=== PATIENT | male | born 1995 | race Hispanic/Latino ===

== ENCOUNTER 2018-04-20 03:37 | Emergency (ER) | payer BC ==
[2018-04-20] MEDS ORDERED: IBUPROFEN 200 MG TAB PO ONE (04:10)
[2018-04-20] MEDS ORDERED: IBUPROFEN 400 MG TAB ONE (04:10)
[2018-04-20] MEDS ORDERED: ACETAMINOPHEN 500 MG TAB ONE (04:10)
--- NOTE | 2018-04-20 05:17 | ER ---
Nurse's Notes [facility] Name: Clovis Huerta Age: 22 yrs Sex: Male : 1995 Arrival Date: 04/20/2018 Time: 03:40 Bed 19 Private MD: Diagnosis: Left Ankle Sprain Presentation: 04/20 03:56 Presenting complaint: Patient states: "I rolled my left ankle about 4-6 weeks ago and bs1 the swelling hasn't gone down, now I am having shooting pains going up my leg.". Transition of care: patient was not received from another setting of care. Onset of symptoms is unknown. Risk Assessment: Do you want to hurt yourself or someone else? Patient reports no desire to harm self or others. Initial Sepsis Screen: Does the patient meet any 2 criteria? No. Patient's initial sepsis screen is negative. Does the patient have a suspected source of infection? No. Patient's initial sepsis screen is negative. Care prior to arrival: None. 03:56 Method Of Arrival: Ambulatory bs1 03:56 Acuity: JOSE 4 bs1 Historical: - Allergies: 03:58 NKDA; bs1 - Home Meds: 03:58 None [Active]; bs1 - PMHx: 03:58 right/left ankle fx; right knee fx; bs1 - PSHx: 03:58 right hand sx- w/ screws; bs1 - Immunization history:: Adult Immunizations up to date. - Social history:: Smoking status: Patient/guardian denies using tobacco. - Ebola Screening: : Patient negative for fever greater than or equal to 101.5 degrees Fahrenheit, and additional compatible Ebola Virus Disease symptoms Patient denies exposure to infectious person. - Family history:: not pertinent. - Hospitalizations: : No recent hospitalization is reported. Screenin:58 Abuse screen: Denies threats or abuse. Denies injuries from another. Nutritional bs1 screening: No deficits noted. Tuberculosis screening: No symptoms or risk factors identified. Fall Risk None identified. Assessment: 04:00 General: Appears in no apparent distress. uncomfortable, Behavior is calm, cooperative, bs1 appropriate for age. Pain: Complains of pain in left ankle Pain radiates to up left leg to chin. Neuro: Level of Consciousness is awake, alert, obeys commands, Oriented to person, place, time, situation, Appropriate for age. Cardiovascular: Denies chest pain, shortness of breath, Heart tones S1 S2 present Capillary refill < 3 seconds Patient's skin is warm and dry. Respiratory: Airway is patent Trachea midline Respiratory effort is even, unlabored, Respiratory pattern is regular, symmetrical, Breath sounds are clear bilaterally. GI: No signs and/or symptoms were reported involving the gastrointestinal system. : No signs and/or symptoms were reported regarding the genitourinary system. EENT: No signs and/or symptoms were reported regarding the EENT system. Derm: Skin is intact, Skin is pink, warm \\T\\ dry. normal. Musculoskeletal: Circulation, motion, and sensation intact. Capillary refill < 3 seconds, Range of motion: limited in left ankle Swelling present in left ankle Reports pain in left ankle up to chin. 05:15 Reassessment: Patient appears in no apparent distress at this time. Patient and/or bs1 family updated on plan of care and expected duration. Pain level reassessed. Patient is alert, oriented x 3, equal unlabored respirations, skin warm/dry/pink. 05:20 Reassessment: Ankle Aircast applied to left ankle, by BRIGITTE Preston. bs1 Vital Signs: 03:59 BP 112 / 88; Pulse 84; Resp 15 S; Temp 97; Pulse Ox 100% ; Weight 142.88 kg; Height 5 bs1 ft. 5 in. (165.10 cm); Pain 7/10; 04:59 BP 108 / 59; Pulse 82; Resp 16; Temp 97.9(O); Pulse Ox 99% on R/A; Pain 0/10; bs1 03:59 Body Mass Index 52.42 (142.88 kg, 165.10 cm) bs1 ED Course: 03:40 Patient arrived in ED. es 03:44 Rosio Roberts, ELI is Primary Nurse. bs1 03:48 Veto Mcgowan MD is Attending Physician. wa 03:57 Triage completed. bs1 03:58 Patient has correct armband on for positive identification. Bed in low position. Call bs1 light in reach. Side rails up X 1. Pulse ox on. NIBP on. 04:00 Arm band placed on left wrist. bs1 04:18 X-ray completed. Portable x-ray completed in exam room. Patient tolerated procedure jw2 well. 04:19 Ankle Left 3 View XRAY In Process Unspecified. EDMS 05:15 Joel Gomez MD is Referral Physician. wa 05:31 No provider procedures requiring assistance completed. Patient did not have IV access bs1 during this emergency room visit. Administered Medications: 04:10 Drug: Motrin 600 mg Route: PO; bs1 05:17 Follow up: Response: No adverse reaction bs1 04:10 Drug: Tylenol 1000 mg Route: PO; bs1 05:17 Follow up: Response: No adverse reaction bs1 Outcome: 05:16 Discharge ordered by . wa 05:31 Discharged to home ambulatory, with significant other. bs1 05:31 Condition: stable 05:31 Discharge instructions given to patient, Instructed on discharge instructions, follow up and referral plans. medication usage, Demonstrated understanding of instructions, follow-up care, medications, Prescriptions given X 1. 05:32 Patient left the ED. bs1 Signatures: Dispatcher [employer] EDPinky Garcia Jenni jw2 Veto Mcgowan MD MD wa Salazar, Brittany RN RN bs1
--- NOTE | 2018-04-20 05:17 | EDPHYS ---
Physician Documentation [facility] Name: Clovis Huerta Age: 22 yrs Sex: Male : 1995 Arrival Date: 04/20/2018 Time: 03:40 Bed 19 Private MD: ED Physician Veto Mcgowan HPI: 04/20 05:06 This 22 yrs old Male presents to ER via Ambulatory with complaints of Ankle wa Injury. 05:06 The patient presents with an injury, swelling, tenderness. The complaints affect the wa left ankle. Onset: The symptoms/episode began/occurred 6 month(s) ago, c/o rolled L ankle 6 weeks ago. did not get it checked. now 4 days of worsening pain and swelling. . Context: The problem was sustained at work, resulted from the patient tripping, The mechanism of injury involved eversion of the affected ankle. The patient can partially bear weight on the affected extremity. the patient is able to ambulate, with mild difficulty. Associated signs and symptoms: Pertinent positives: swelling, Pertinent negatives: calf tenderness, numbness, warmth. Modifying factors: The symptoms are alleviated by nothing, the symptoms are aggravated by weight bearing. Severity of symptoms: At their worst the symptoms were moderate, in the emergency department the symptoms are unchanged. The patient has not experienced similar symptoms in the past. The patient has not recently seen a physician. Historical: - Allergies: 03:58 NKDA; bs1 - Home Meds: 03:58 None [Active]; bs1 - PMHx: 03:58 right/left ankle fx; right knee fx; bs1 - PSHx: 03:58 right hand sx- w/ screws; bs1 - Immunization history:: Adult Immunizations up to date. - Social history:: Smoking status: Patient/guardian denies using tobacco. - Ebola Screening: : Patient negative for fever greater than or equal to 101.5 degrees Fahrenheit, and additional compatible Ebola Virus Disease symptoms Patient denies exposure to infectious person. - Family history:: not pertinent. - Hospitalizations: : No recent hospitalization is reported. ROS: 05:11 Constitutional: Negative for fever, chills, and weight loss, Eyes: Negative for injury, wa pain, redness, and discharge, ENT: Negative for injury, pain, and discharge, Neck: Negative for injury, pain, and swelling, Cardiovascular: Negative for chest pain, palpitations, and edema, Respiratory: Negative for shortness of breath, cough, wheezing, and pleuritic chest pain, Abdomen/GI: Negative for abdominal pain, nausea, vomiting, diarrhea, and constipation, Back: Negative for injury and pain, : Negative for injury, bleeding, discharge, and swelling, Skin: Negative for injury, rash, and discoloration, Neuro: Negative for headache, weakness, numbness, tingling, and seizure, Psych: Negative for depression, anxiety, suicide ideation, homicidal ideation, and hallucinations. 05:11 MS/extremity: Positive for pain, swelling, tenderness. 05:11 All other systems are negative. Exam: 05:12 Constitutional: This is a well developed, well nourished patient who is awake, alert, wa and in no acute distress. Head/Face: Normocephalic, atraumatic. Eyes: Pupils equal round and reactive to light, extra-ocular motions intact. Lids and lashes normal. Conjunctiva and sclera are non-icteric and not injected. Cornea within normal limits. Periorbital areas with no swelling, redness, or edema. ENT: Nares patent. No nasal discharge, no septal abnormalities noted. Tympanic membranes are normal and external auditory canals are clear. Oropharynx with no redness, swelling, or masses, exudates, or evidence of obstruction, uvula midline. Mucous membranes moist. Neck: Trachea midline, no thyromegaly or masses palpated, and no cervical lymphadenopathy. Supple, full range of motion without nuchal rigidity, or vertebral point tenderness. No Meningismus. Chest/axilla: Normal chest wall appearance and motion. Nontender with no deformity. No lesions are appreciated. Cardiovascular: Regular rate and rhythm with a normal S1 and S2. No gallops, murmurs, or rubs. Normal PMI, no JVD. No pulse deficits. Respiratory: Lungs have equal breath sounds bilaterally, clear to auscultation and percussion. No rales, rhonchi or wheezes noted. No increased work of breathing, no retractions or nasal flaring. Abdomen/GI: Soft, non-tender, with normal bowel sounds. No distension or tympany. No guarding or rebound. No evidence of tenderness throughout. Back: No spinal tenderness. No costovertebral tenderness. Full range of motion. Skin: Warm, dry with normal turgor. Normal color with no rashes, no lesions, and no evidence of cellulitis. Neuro: Awake and alert, GCS 15, oriented to person, place, time, and situation. Cranial nerves II-XII grossly intact. Motor strength 5/5 in all extremities. Sensory grossly intact. Cerebellar exam normal. Normal gait. Psych: Awake, alert, with orientation to person, place and time. Behavior, mood, and affect are within normal limits. 05:12 Musculoskeletal/extremity: Extremities: grossly normal except: noted in the left lateral ankle: contusion, pain, swelling, tenderness, ROM: no acute changes. Vital Signs: 03:59 BP 112 / 88; Pulse 84; Resp 15 S; Temp 97; Pulse Ox 100% ; Weight 142.88 kg; Height 5 bs1 ft. 5 in. (165.10 cm); Pain 7/10; 04:59 BP 108 / 59; Pulse 82; Resp 16; Temp 97.9(O); Pulse Ox 99% on R/A; Pain 0/10; bs1 03:59 Body Mass Index 52.42 (142.88 kg, 165.10 cm) bs1 Procedures: 05:14 Splinting: Splint applied to left ankle using Air Cast, applied by nurse. Examined by sanaz wy, post splint application: neurovascular intact, 2+ distal pulses palpable, brisk capillary refill noted, Patient tolerated well. MDM: 03:49 Patient medically screened. il 05:13 Differential diagnosis: fracture, sprain. Data reviewed: vital signs, nurses notes. il Test interpretation: by ED physician or midlevel provider: L ankle x-ray: soft tissue swelling in the area of lateral malleolus. no acute fx. Response to treatment: the patient's symptoms have markedly improved after treatment. 04/20 03:55 Order name: Ankle Left 3 View XRAY il 04/20 05:17 Order name: Aircast Ankle Splint; Complete Time: 05:22 bs1 Administered Medications: 04:10 Drug: Motrin 600 mg Route: PO; bs1 05:17 Follow up: Response: No adverse reaction bs1 04:10 Drug: Tylenol 1000 mg Route: PO; bs1 05:17 Follow up: Response: No adverse reaction bs1 Disposition: 04/20/18 05:16 Discharged to Home. Impression: Left Ankle Sprain. - Condition is Stable. - Discharge Instructions: Ankle Sprain. - Prescriptions for Prednisone 20 mg Oral Tablet - take 2 tablet by ORAL route once daily for 5 days; 10 tablet. - Medication Reconciliation Form, Thank You Letter, Antibiotic Education, Prescription Opioid Use, Work release form form. - Follow up: Joel Gomez MD; When: 2 - 3 days; Reason: Recheck today's complaints. - Problem is new. - Symptoms have improved. - Notes: wear splint. use crutches to help put less pressure on the injured ankle. follow up with the orthopedic surgeon for reevaluation. Signatures: Dispatcher [employer] EDMS Veto Mcgowan MD MD wa Salazar, Brittany RN RN bs1 Corrections: (The following items were deleted from the chart) 05:32 05:16 04/20/2018 05:16 Discharged to Home. Impression: Left Ankle Sprain. Condition is bs1 Stable. Forms are Medication Reconciliation Form, Thank You Letter, Antibiotic Education, Prescription Opioid Use. Follow up: Joel Gomez; When: 2 - 3 days; Reason: Recheck today's complaints. Problem is new. Symptoms have improved. wa
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
== END 2018-04-20 05:32 | disposition home or self-care (01) ==
LOC: ER 03:37
DX: S93.402A Sprain of unspecified ligament of left ankle, initial encounter (principal); W18.49XA Other slipping, tripping and stumbling without falling, initial encounter; Y93.89 Activity, other specified; Y92.89 Other specified places as the place of occurrence of the external cause; Y99.0 Civilian activity done for income or pay
CPT/HCPCS: 99284

== ENCOUNTER 2018-08-01 17:39 | Emergency (ER) | payer BC ==
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
[2018-08-01 21:12] LABS: Urine Blood NEGATIVE (NEG); Urine Glucose NEGATIVE (NEG); Urine Protein 2+ (NEG); Urine Specific Gravity <1.005 (1.005-1.030); Urine pH 5.5 (5.0-7.0)
[2018-08-01] MEDS ORDERED: ONDANSETRON 4 MG/2 ML VIAL ONE (21:22)
== END 2018-08-01 21:28 | disposition home or self-care (01) ==
LOC: ER 17:39
DX: S16.1XXA Strain of muscle, fascia and tendon at neck level, initial encounter (principal); V49.49XA Driver injured in collision with other motor vehicles in traffic accident, initial encounter
CPT/HCPCS: 72125; 72128; 81003; 96374; 99285; J2405

== ENCOUNTER 2018-10-31 16:54 | Emergency (ER) | payer BC ==
[2018-10-31 18:41] LABS: Absolute Lymphocytes (CBC) 2.4 K/uL (0.7-4.9); Absolute Monocytes 0.6 K/uL (0.1-1.3); Absolute Neutrophil 6.9 K/uL (1.8-8.0); Basophils % 0.6 % (0-1.3); Eosinophils % 1.5 % (0-4.4); Hematocrit 44.7 % (39.6-49.0); Lymphocytes % 23.6 % (15.3-44.8); MPV 7.9 fL (7.6-11.3)
[2018-10-31 18:55] LABS: ALT/SGPT 37 U/L (12-78); AST/SGOT 21 U/L (15-37); Albumin 3.8 g/dL (3.4-5.0); Alkaline Phosphatase 89 U/L (45-117); BUN Blood Urea Nitrogen 14 mg/dL (7-18); Bicarbonate 27 mmol/L (21-32); Bilirubin Direct 0.3 mg/dL (0-0.2); Bilirubin Total 0.9 mg/dL (0.2-1.0); Glucose Level 89 mg/dL (74-106); Lipase 65 U/L (73-393); Potassium 3.9 mmol/L (3.5-5.1); Protein, Total 8.7 g/dL (6.4-8.2); Sodium Level 140 mmol/L (136-145)
[2018-10-31] MEDS ORDERED: NA CHLORIDE 0.9% 1,000 ML ONE (19:00)
[2018-10-31 20:23] LABS: Urine RBC NONE SEEN /HPF (NONE SEEN)
[2018-10-31 20:24] LABS: Urine Bacteria NONE SEEN /HPF (NONE SEEN); Urine Culture Reflex Order NOT NEEDED
[2018-10-31 20:24] LABS: Urine Blood NEGATIVE (NEG); Urine Glucose NEGATIVE (NEG); Urine Protein NEGATIVE (NEG)
--- NOTE | 2018-10-31 20:59 | RAD REPORT ---
EXAM DESCRIPTION: CT - Abdomen Pelvis W Contrast - 10/31/2018 8:38 pm CLINICAL HISTORY: Right lower quadrant pain COMPARISON: January 2016 TECHNIQUE: Biphasic, helical CT imaging of the abdomen and pelvis was performed following 100 ml non -ionic IV contrast. Oral contrast was given. All CT scans are performed using dose optimization technique as appropriate and may include automated exposure control or mA/KV adjustment according to patient size. FINDINGS: No suspicious findings in the lung bases. No focal liver lesions seen. Diffuse fatty infiltration is present in the liver. Spleen and pancreas show no acute findings. Gallbladder and biliary tree are also without suspicious finding. Symmetric renal function is seen with no hydronephrosis or suspicious renal mass. No pyelonephritis o r acute parenchymal process. Urinary bladder is contracted limiting assessment. No bladder abnormalit y suspected. No adrenal abnormalities. No dilated bowel loops or bowel wall thickening. No direct or indirect evidence for appendicitis. Sma ll mesenteric lymph nodes are present. No free air, free fluid or inflammatory stranding. No hernia, mass or bulky lymphadenopathy within the peritoneal or retroperitoneal spaces. Patient has an enlarg ed 3.5 centimeter right inguinal lymph node. . No suspicious bony findings. IMPRESSION: Small mesenteric lymph nodes are present. No appendicitis findings seen. No dilated bowel or focal bowel wall thickening. No emergent finding seen. Approximately 3.5 centimeter right inguinal lymph node likely reactive but warranting ongoing monitor ing or further workup. No other lymphadenopathy. Diffuse fatty infiltration of the liver.
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
--- NOTE | 2018-10-31 21:18 | ER ---
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 Transition of care: patient was not received from another setting of care. Onset of symptoms was October 31, 2018. Risk Assessment: Do you want to hurt yourself or someone else? Patient reports no desire to harm self or others. Initial Sepsis Screen: Does the patient meet any 2 criteria? No. Patient's initial sepsis screen is negative. Does the patient have a suspected source of infection? No. Patient's initial sepsis screen is negative. Care prior to arrival: None. 17:32 Method Of Arrival: Ambulatory 17:32 Acuity: JOSE 3 sg Historical: - Allergies: 17:35 NKDA; sg - Home Meds: 17:35 None [Active]; sg - PMHx: 17:35 right knee fx; right/left ankle fx; sg - PSHx: 17:35 right hand sx- w/ screws; sg - Immunization history:: Adult Immunizations up to date. - Social history:: Smoking status: Patient/guardian denies using tobacco. - Ebola Screening: : Patient negative for fever greater than or equal to 101.5 degrees Fahrenheit, and additional compatible Ebola Virus Disease symptoms Patient denies exposure to infectious person Patient denies travel to an Ebola-affected area in the 21 days before illness onset. Screenin:20 Abuse screen: Denies threats or abuse. Denies injuries from another. Nutritional aj screening: No deficits noted. Tuberculosis screening: No symptoms or risk factors identified. Fall Risk None identified. Assessment: 18:20 General: Appears in no apparent distress. comfortable, Behavior is calm, cooperative, aj appropriate for age. Pain: Complains of pain in right femoral area. Neuro: Level of Consciousness is awake, alert, obeys commands, Oriented to person, place, time, situation, Appropriate for age. Respiratory: Airway is patent Respiratory effort is even, unlabored, Respiratory pattern is regular, symmetrical. GI: Abdomen is flat, Bowel sounds present X 4 quads. Abd is soft and non tender Reports lower abdominal pain. Derm: Skin is intact, is healthy with good turgor, Skin is pink, warm \T\ dry. normal. 19:00 General: Appears in no apparent distress. comfortable, Behavior is calm, cooperative, rr5 appropriate for age. Pain: Complains of pain in right femoral area Pain does not radiate. Pain currently is 6 out of 10 on a pain scale. Quality of pain is described as aching, Pain began gradually, Is intermittent. Neuro: Level of Consciousness is awake, alert, obeys commands, Oriented to person, place, time, situation, Appropriate for age. Cardiovascular: Capillary refill < 3 seconds Patient's skin is warm and dry. Respiratory: Airway is patent Respiratory effort is even, unlabored, Respiratory pattern is regular, symmetrical. GI: Abdomen is obese, Reports lower abdominal pain. : No signs and/or symptoms were reported regarding the genitourinary system. EENT: No signs and/or symptoms were reported regarding the EENT system. Derm: Skin is intact, Skin is pink, warm \T\ dry. normal. Musculoskeletal: Capillary refill < 3 seconds, Range of motion: intact in all extremities. 20:00 Reassessment: Patient appears in no apparent distress at this time. Patient and/or rr5 family updated on plan of care and expected duration. Pain level reassessed. awaiting for CT scan procedure. 20:45 Reassessment: Patient appears in no apparent distress at this time. Patient and/or rr5 family updated on plan of care and expected duration. Pain level reassessed. back from CT scan. no complaints made. 21:15 Reassessment: Patient appears in no apparent distress at this time. Patient and/or rr5 family updated on plan of care and expected duration. Pain level reassessed. discharge instruction given and explained without complaints made. Vital Signs: 17:30 BP 115 / 83; Pulse 77; Resp 17; Temp 98.3; Pulse Ox 100% on R/A; Weight 135.17 kg (R); sg Height 5 ft. 5 in. (165.10 cm); Pain 7/10; 19:00 BP 105 / 77; Pulse 88; Resp 17; Temp 98.7; Pulse Ox 99% ; Pain 6/10; rr5 20:00 BP 108 / 75; Pulse 80; Resp 18; Pulse Ox 99% ; rr5 21:00 BP 102 / 62; Pulse 80; Resp 17; Pulse Ox 98% ; rr5 17:30 Body Mass Index 49.59 (135.17 kg, 165.10 cm) ED Course: 16:57 Patient arrived in ED. rg4 17:32 Arm band placed on. sg 17:34 Triage completed. sg 17:37 Oni Christensen PA is PHCP. cp 17:37 Oni Schofield MD is Attending Physician. cp 17:49 Angie Campbell, ELI is Primary Nurse. aj 18:20 Patient has correct armband on for positive identification. aj 18:20 Inserted saline lock: 18 gauge in right antecubital area, using aseptic technique. aj Blood collected. 18:27 Oral contrast reported to be complete. sj 20:[address] via wheelchair. sj 20:37 CT completed. Patient tolerated procedure well. Patient moved back from CT. sj 20:39 CT Abd/Pelvis - W/Contrast: give oral contrast In Process Unspecified. EDMS 21:14 Kike Sotelo MD is Referral Physician. cp 21:15 No provider procedures requiring assistance completed. IV discontinued, intact, rr5 bleeding controlled, No redness/swelling at site. Pressure dressing applied. Administered Medications: 18:52 Drug: NS 0.9% 1000 ml Route: IV; Rate: 1 bolus; Site: right antecubital; aj 20:00 Follow up: Response: No adverse reaction; IV Status: Completed infusion; IV Intake: rr5 1000ml Intake: 20:00 IV: 1000ml; Total: 1000ml. rr5 Outcome: 21:17 Discharge ordered by MD. cp 21:20 Discharged to home ambulatory. rr5 21:20 Condition: stable 21:20 Discharge instructions given to patient, Instructed on discharge instructions, follow up and referral plans. medication usage, Demonstrated understanding of instructions, follow-up care, medications, Prescriptions given X 2. 21:33 Patient left the ED. rr5 Signatures: Dispatcher [employer] EDMS Jerry Owens RN RN sg Myers, Amanda, RN RN aj Jones, Susan Oni Christensen PA PA cp Garcia, Rubi rg4 Calixto Dewitt, RN RN rr5
== END 2018-10-31 21:33 | disposition home or self-care (01) ==
LOC: ER 16:54
DX: I88.0 Nonspecific mesenteric lymphadenitis (principal)
CPT/HCPCS: 36415; 74177; 80048; 80076; 81003; 81015; 83690; 85025; 96360; 99284; J7030; Q9967

== ENCOUNTER 2019-09-22 10:00 | Emergency (ER) | payer BC ==
--- NOTE | 2019-09-22 11:09 | ER ---
Nurse's Notes [facility] Name: Clovis Huerta Age: 24 yrs Sex: Male : 1995 Arrival Date: 09/22/2019 Time: 10:04 Bed 10 Private MD: Diagnosis: Strain of muscle, fascia and tendon of lower back Presentation: 09/22 10:34 Presenting complaint: Patient states: lifted something heavy yesterday, strained his iw back, now hurting mid to lower back, more on right, was wanting time off work but his employer said he needed a work note for that. Transition of care: patient was not received from another setting of care. Onset of symptoms was September 21, 2019. Risk Assessment: Do you want to hurt yourself or someone else? Patient reports no desire to harm self or others. Initial Sepsis Screen: Does the patient meet any 2 criteria? No. Patient's initial sepsis screen is negative. Does the patient have a suspected source of infection? No. Patient's initial sepsis screen is negative. Care prior to arrival: None. 10:34 Method Of Arrival: Ambulatory 10:34 Acuity: JOSE 4 iw Historical: - Allergies: 10:36 NKDA; iw - Home Meds: 10:36 None [Active]; iw - PMHx: 10:36 right knee fx; right/left ankle fx; iw - PSHx: 10:36 right hand; iw - Immunization history:: Last tetanus immunization: unknown. - Social history:: Smoking status: Patient uses tobacco products, denies chronic smoking, but will smoke occasionally. - Ebola Screening: : Patient negative for fever greater than or equal to 101.5 degrees Fahrenheit, and additional compatible Ebola Virus Disease symptoms Patient denies exposure to infectious person Patient denies travel to an Ebola-affected area in the 21 days before illness onset No symptoms or risks identified at this time. - Family history:: not pertinent. - Hospitalizations: : No recent hospitalization is reported. Vital Signs: 10:36 BP 123 / 57; Pulse 66; Resp 16; Temp 98.5; Pulse Ox 96% on R/A; Weight 136.08 kg; iw Height 5 ft. 7 in. (170.18 cm); Pain 6/10; 10:36 Body Mass Index 46.99 (136.08 kg, 170.18 cm) iw ED Course: 10:04 Patient arrived in ED. mr 10:35 Triage completed. iw 10:36 Arm band placed on. iw 10:37 Emerson Jorge MD is Attending Physician. rn 11:19 Suzanne Covington RN is Primary Nurse. iw Administered Medications: No medications were administered Outcome: :08 Discharge ordered by . rn 11:22 Patient left the ED. iw Signatures: Dayo Shania mr Suzanne Covington, ELI RN Emerson Jorge MD MD rn
--- NOTE | 2019-09-22 11:09 | EDPHYS ---
Physician Documentation [facility] Name: Clovis Huerta Age: 24 yrs Sex: Male : 1995 Arrival Date: 09/22/2019 Time: 10:04 Bed 10 Private MD: ED Physician Emerson Jorge HPI: 09/22 11:01 This 24 yrs old Male presents to ER via Ambulatory with complaints of Back rn Pain. 11:01 The patient presents with pain that is acute. The symptoms are located in the low back. rn Onset: The symptoms/episode began/occurred yesterday. The pain does not radiate. Associated signs and symptoms: The patient has no apparent associated signs or symptoms, Pertinent negatives: abdominal pain, fever, hematuria, incontinence, nausea, numbness, tingling, urinary retention, vomiting, weakness. Modifying factors: The patient symptoms are alleviated by OTC meds, the patient symptoms are aggravated by lifting. Severity of symptoms: At their worst the symptoms were mild, in the emergency department the symptoms have improved. The patient has not experienced similar symptoms in the past. The patient has not recently seen a physician. Reports low back pain after lifting heavy object at work, no paralysis or bowel/bladder issues. Reports pain only with heavy lifting. No radiation of pain. Improved with ibuprofen. . 11:05 States didn't think needed to come here, but work made him come to get checked out.. rn Historical: - Allergies: 10:36 NKDA; iw - Home Meds: 10:36 None [Active]; iw - PMHx: 10:36 right knee fx; right/left ankle fx; iw - PSHx: 10:36 right hand; iw - Immunization history:: Last tetanus immunization: unknown. - Social history:: Smoking status: Patient uses tobacco products, denies chronic smoking, but will smoke occasionally. - Ebola Screening: : Patient negative for fever greater than or equal to 101.5 degrees Fahrenheit, and additional compatible Ebola Virus Disease symptoms Patient denies exposure to infectious person Patient denies travel to an Ebola-affected area in the 21 days before illness onset No symptoms or risks identified at this time. - Family history:: not pertinent. - Hospitalizations: : No recent hospitalization is reported. ROS: 11:05 Constitutional: Negative for fever, chills, and weight loss, Eyes: Negative for injury, rn pain, redness, and discharge, Neck: Negative for injury, pain, and swelling, Cardiovascular: Negative for chest pain, palpitations, and edema, Respiratory: Negative for shortness of breath, cough, wheezing, and pleuritic chest pain, Abdomen/GI: Negative for abdominal pain, nausea, vomiting, diarrhea, and constipation, Back: + low back pain and injury MS/Extremity: Negative for injury and deformity, Skin: Negative for injury, rash, and discoloration, Neuro: Negative for headache, weakness, numbness, tingling, and seizure. Exam: 11:05 Constitutional: This is a well developed, well nourished patient who is awake, alert, rn and in no acute distress. Head/Face: Normocephalic, atraumatic. Back: No spinal tenderness. No costovertebral tenderness. Full range of motion. MS/ Extremity: Pulses equal, no cyanosis. Neurovascular intact. Full, normal range of motion. Equal circumference. Neuro: Awake and alert, GCS 15, oriented to person, place, time, and situation. Cranial nerves II-XII grossly intact. Motor strength 5/5 in all extremities. Sensory grossly intact. Cerebellar exam normal. Normal gait. Vital Signs: 10:36 BP 123 / 57; Pulse 66; Resp 16; Temp 98.5; Pulse Ox 96% on R/A; Weight 136.08 kg; iw Height 5 ft. 7 in. (170.18 cm); Pain 6/10; 10:36 Body Mass Index 46.99 (136.08 kg, 170.18 cm) iw MDM: 10:37 Patient medically screened. rn 11:05 Differential diagnosis: disc herniation or bulge, radiculopathy. Data reviewed: vital rn signs, nurses notes, and as a result, I will discharge patient. Counseling: I had a detailed discussion with the patient and/or guardian regarding: the historical points, exam findings, and any diagnostic results supporting the discharge/admit diagnosis, the need for outpatient follow up, to return to the emergency department if symptoms worsen or persist or if there are any questions or concerns that arise at home. Special discussion: I discussed with the patient/guardian in detail that at this point there is no indication for admission to the hospital. It is understood, however, that if the symptoms persist or worsen the patient needs to return immediately for re-evaluation. Further emergent ED testing is not indicated at this point in time. I discussed with the patient/guardian in detail the need to arrange with the PCP or specialist further outpatient testing, MRI, Based on the history and exam findings, there is no indication for further emergent testing or inpatient evaluation. I discussed with the patient/guardian the need to see the back specialist for further evaluation of the symptoms. Administered Medications: No medications were administered Disposition: 09/22/19 11:08 Discharged to Home. Impression: Strain of muscle, fascia and tendon of lower back. - Condition is Stable. - Discharge Instructions: Back Pain, Adult. - Work release form, Medication Reconciliation Form, Thank You Letter, Antibiotic Education, Prescription Opioid Use form. - Follow up: Private Physician; When: As needed; Reason: Recheck today's complaints, Re-evaluation by your physician. - Problem is new. - Symptoms have improved. Signatures: Suzanne Covington RN RN iw Emerson Jorge MD MD advisory intern: (The following items were deleted from the chart) 11:22 11:08 09/22/2019 11:08 Discharged to Home. Impression: Strain of muscle, fascia and iw tendon of lower back. Condition is Stable. Forms are Medication Reconciliation Form, Thank You Letter, Antibiotic Education, Prescription Opioid Use. Follow up: Private Physician; When: As needed; Reason: Recheck today's complaints, Re-evaluation by your physician. Problem is new. Symptoms have improved. rn
[2019-09-22 11:29] VITALS: BP 123/57; TEMP 98.5; O2SAT 96
== END 2019-09-22 11:22 | disposition home or self-care (01) ==
LOC: ER 10:00
DX: S39.012A Strain of muscle, fascia and tendon of lower back, initial encounter (principal); X50.0XXA Overexertion from strenuous movement or load, initial encounter; Y93.9 Activity, unspecified; Y92.89 Other specified places as the place of occurrence of the external cause; Y99.8 Other external cause status
CPT/HCPCS: 99281